=== PATIENT | male | born 1995 | race Caucasian/White ===

== ENCOUNTER 2020-09-16 21:03 | Inpatient (IN) | payer OTHER ==
[~2020-09-16 21:03] MED LIST: Iopamidol 370 76% 100 ML VIAL ONE
[2020-09-16] MEDS ORDERED: fentaNYL Citrate/PF 2,000 MCG in Sodium Chloride 0.9% 60 ML IV SCH (21:30)
[2020-09-16 21:31] LABS: Actual Bicarbonate (HCO3a) 11.8 mEq/L (22-28); Analyzer IN Cardio ER; Base Excess (BEa) -18.9 mEq/L (-2.0 to +3.0); CO2 Tension 45.7 mmHg (35.0-45.0); Calcium, Ionized (arterial) 1.13 mmol/L (1.12-1.30); Carboxyhemoglobin (COHb) 0.3 gm% (0.0-3.0); Hemoglobin (Hb) 16.6 g/dL (14.0-18.0); O2 Tension (PaO2), arterial 79.4 mmHg (80.0-100.0); Potassium - ABG Lab 4.04 mmol/L (3.70-5.30)
[2020-09-16 21:32] LABS: Puncture Site RRA; pH, Arterial 7.03 (7.35-7.45)
--- NOTE | 2020-09-16 21:32 | RAD ---
Exam: Chest one view HISTORY:Status post intubation. Status post NG tube placement. Comparison: 09/16/2020 at 04/21/2017 FINDINGS: Cardiac silhouette:Stable cardiomegaly. Lines and tubes: Interval placement of nasogastric tube terminating in left upper quadrant. Stable en dotracheal tube. Aorta: Unremarkable Pulmonary vessels: Normal Costophrenic angles: Clear LUNGS: Worsening confluent opacities of the lung parenchyma. Air bronchograms are noted in the left u pper lobe. Pneumothorax: None Osseous abnormalities: None IMPRESSION: 1. Stable endotracheal tube 2. Interval placement of nasogastric tube. Interval reduction of previous noted gastric distention. 3. Worsening bilateral alveolar opacities with air bronchograms in the left upper lobe.
[2020-09-16 21:33] LABS: ALV-art Gradient 576.475 mmHg (0-20)
[2020-09-16 21:37] LABS: Mean Corpuscular HGB CONC 32.5 g/dL (32.0-36.0); Mean Corpuscular Hemoglobin 29.6 pg (27.0-31.0); Mean Corpuscular Volume 91.1 fL (78.0-98.0); Mean Platelet Volume 7.6 fL (7.4-10.4); Platelet Count 412 thou/uL (130-400); RBC Distribution Width 11.4 % (11.5-14.5); Red Blood Cell (RBC) Count 5.42 mill/uL (4.70-6.10); White Blood Cell (WBC) Count 24.4 thou/uL (4.8-10.8)
[2020-09-16] MEDS ORDERED: Furosemide 40 MG/4 ML VIAL ONE (21:45)
[2020-09-16] MEDS ORDERED: Piperacillin/Tazobactam 3.375 GM VIAL ONE (21:45)
[2020-09-16 21:54] LABS: Band 8 % (5-11); Lymphocytes 10 % (21-51); MDiff Complete? YES; Monocytes 7 % (0-10); Neutrophil 73 % (42-75); Platelet Morphology Comment Appears Adequate; RBC Morphology Normal; Reactive Lymphocytes 2 % (0-10)
[2020-09-16 22:02] LABS: ALT (SGPT) 705 U/L (8-55); AST (SGOT) 703 U/L (5-34); Albumin 3.9 g/dL (3.5-5.0); Alkaline Phosphatase 99 U/L (40-110); Anion Gap 26 mmol/L (10-20); BUN (Urea Nitrogen) 18 mg/dL (8.9-20.6); Bilirubin, Total 0.4 mg/dL (0.2-1.2); Calc. Creatinine Clearance 0 mL/min (70-130); Calcium 7.3 mg/dL (7.8-10.44); Carbon Dioxide 10 mmol/L (22-29); Chloride 109 mmol/L (98-107); Globulin 2.7 g/dL (2.4-3.5); Glucose 322 mg/dL (70-105); Potassium 4.4 mmol/L (3.5-5.1); Protein, Total 6.6 g/dL (6.0-8.3); Sodium 141 mmol/L (136-145)
--- NOTE | 2020-09-16 22:58 | CT ---
Exam: CT cervical spine without contrast HISTORY: Trauma. Pain. COMPARISON: None FINDINGS: No craniocervical dissociation. Appropriate alignment of the lateral masses of C1 and C2. Intact odon toid process Appropriate alignment of the facets. Straightening of cervical lordosis is presumed to be due to patient position, muscle spasm or cervica l collar. Soft tissue neck structures: No mass, lymphadenopathy or hematoma. No prevertebral soft tissue swelli ng. Note is made of endotracheal and nasogastric tube. Upper mediastinum and lung apices: Consolidation in the visualized lung parenchyma Central spinal canal: Neural foramina and central spinal canal are patent. Evaluation is limited by t echnique Vertebral bodies: Cervical spine vertebral body height is maintained. No fracture. IMPRESSION: 1. No cervical spine fracture 2. Straightening of cervical lordosis as above. If there is concern for ligamentous injury, consider MRI 3. Consolidation involving the visualized lung apices.
[2020-09-16 23:30] LABS: SARS-CoV-2 NAA Rapid Test Not Detected (NotDetected)
[2020-09-16] MEDS ORDERED: Sodium Chloride 0.9% 1,000 ML IV SCH (23:45)
[2020-09-16] MEDS ORDERED: Ondansetron PF 4 MG/2 ML Vial IVP PRN (23:56)
[2020-09-16] MEDS ORDERED: hydrALAZINE 20 MG/ML VIAL SLOW IVP PRN (23:56)
[2020-09-16] MEDS ORDERED: Dextrose 5% in Water 1,000 ML IV PRN (23:56)
[2020-09-16] MEDS ORDERED: Dextrose 50% Abboject 50 ML SYRINGE SLOW IVP PRN (23:56)
[2020-09-17] MEDS ORDERED: Ventilator Sedation Protocol 1 EACH FS ONE (00:15)
[2020-09-17] MEDS ORDERED: Lorazepam 2 MG/ML VIAL SLOW IVP PRN (00:30)
[2020-09-17] MEDS ORDERED: Propofol BOLUS 1,000 MG/100 ML VIAL IV PRN (00:30)
[2020-09-17] MEDS ORDERED: Sodium Bicarb 50 MEQ/50 ML Abboject 8.4% SYRINGE IVP SCH ×2 (00:30→16:00)
[2020-09-17] MEDS ORDERED: Morphine 2 MG/ML VIAL SLOW IVP PRN (00:30)
[2020-09-17] MEDS ORDERED: Fentanyl BOLUS 250 ML IVPB PRN (00:30)
[2020-09-17] MEDS ORDERED: Propofol 1,000 MG/100 ML VIAL IV PRN (00:30)
[2020-09-17] MEDS ORDERED: Lactated Ringer's 1,000 ML IV SCH ×2 (00:30→02:55)
[2020-09-17] MEDS ORDERED: DISCONTINUE PREVIOUS NARCOTIC PAIN MEDICATIONS AND BENZODIAZEPINES FS SCH (00:30)
[2020-09-17 00:58] LABS: Phosphorus 7.8 mg/dL (2.3-4.7)
[2020-09-17] MEDS ORDERED: Vecuronium 10 MG VIAL IV PRN (01:30)
[2020-09-17] MEDS ORDERED: Sodium Bicarb 50 MEQ/50 ML Abboject 8.4% SYRINGE ONE ×2 (01:31→14:51)
[2020-09-17 02:06] VITALS: BMI 25.2
[2020-09-17 02:25] LABS: Bilirubin Negative (Negative); Blood, Urine 1+ (Negative); Clarity Clear (Clear); Glucose, Urine (Dipstick) 300 mg/dL (Negative); Ketone, Urine Negative (Negative); Leukocyte Negative Leu/uL (Negative); Nitrite Negative (Negative); Protein, Urine (Dipstick) 30 mg/dL (Neg-Trace); Specific Gravity, Urine 1.023 (1.002-1.036); Urobilinogen Normal mg/dL (Less than 2)
[2020-09-17 02:46] LABS: INR-International Normal Ratio 1.3; PTT 30.1 sec (22.9-36.1); Prothrombin Time 16.4 sec (12.0-14.7)
[2020-09-17 02:53] LABS: Lactic Acid 9.1 mmol/L (0.5-2.2)
[2020-09-17 02:54] LABS: Anion Gap 24 mmol/L (10-20); BUN (Urea Nitrogen) 22 mg/dL (8.9-20.6); Calc. Creatinine Clearance 78 mL/min (70-130); Calcium 7.3 mg/dL (7.8-10.44); Carbon Dioxide 12 mmol/L (22-29); Chloride 108 mmol/L (98-107); Glucose 266 mg/dL (70-105); Magnesium 2.1 mg/dL (1.6-2.6); Phosphorus 6.7 mg/dL (2.3-4.7); Potassium 3.8 mmol/L (3.5-5.1); Sodium 140 mmol/L (136-145)
[2020-09-17 03:26] LABS: CKMB 26.9 ng/mL (0-6.6)
[2020-09-17 03:31] LABS: Hemoglobin 18.8 g/dL (14.0-18.0); Mean Corpuscular HGB CONC 33.8 g/dL (32.0-36.0); Mean Corpuscular Hemoglobin 30.9 pg (27.0-31.0); Mean Corpuscular Volume 91.5 fL (78.0-98.0); Red Blood Cell (RBC) Count 6.09 mill/uL (4.70-6.10); White Blood Cell (WBC) Count 36.7 thou/uL (4.8-10.8)
[2020-09-17 03:32] LABS: Band 25 % (5-11); Hypochromia SLIGHT = 6-15 cells (100X) (0-5/hpf); Lymphocytes 5 % (21-51); MDiff Complete? YES; Mean Platelet Volume 7.6 fL (7.4-10.4); Metamyelocyte 1 % (0-0); Monocytes 6 % (0-10); Neutrophil 63 % (42-75); Platelet Count 410 thou/uL (130-400); Platelet Morphology Comment Appears Adequate; RBC Distribution Width 11.6 % (11.5-14.5)
[2020-09-17] MEDS ORDERED: Fentanyl 100 MCG/2 ML VIAL ONE (04:39)
[2020-09-17] MEDS ORDERED: Rocuronium Bromide 10 MG/ML (10ML VIAL) ONE (04:39)
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
[2020-09-17 07:53] LABS: Actual Bicarbonate (HCO3a) 11.3 mEq/L (22-28); Base Excess (BEa) -15.8 mEq/L (-2.0 to +3.0); CO2 Tension 31.8 mmHg (35.0-45.0); Calcium, Ionized (arterial) 1.12 mmol/L (1.12-1.30); Carboxyhemoglobin (COHb) 0.3 gm% (0.0-3.0); O2 Tension (PaO2), arterial 266.6 mmHg (80.0-100.0); Potassium - ABG Lab 3.42 mmol/L (3.70-5.30)
[2020-09-17 07:56] LABS: pH, Arterial 7.17 (7.35-7.45)
[2020-09-17 07:57] LABS: Puncture Site RRA
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
[2020-09-17 08:07] LABS: Hemoglobin 17.7 g/dL (14.0-18.0); Mean Corpuscular HGB CONC 32.7 g/dL (32.0-36.0); Mean Corpuscular Volume 91.7 fL (78.0-98.0); Mean Platelet Volume 7.7 fL (7.4-10.4); Platelet Count 407 thou/uL (130-400); RBC Distribution Width 11.5 % (11.5-14.5); Red Blood Cell (RBC) Count 5.92 mill/uL (4.70-6.10); White Blood Cell (WBC) Count 27.1 thou/uL (4.8-10.8)
--- NOTE | 2020-09-17 08:20 | RAD ---
EXAM: XR Chest 1 View Portable PROVIDED CLINICAL HISTORY: Intubated, pulmonary edema. COMPARISON: 09/16/2020 FINDINGS: There is artifact overlying the chest which limits adequate evaluation. There are increased interstit ial and alveolar opacities within the lungs bilaterally. The more dense area of consolidation in the left mid and upper lung zones has mildly improved. No new area of consolidation or pleural fluid is seen. Endotracheal tube and nasogastric tubes remain in place. Cardiac silhouette is within normal limits. Metallic density overlies right humeral head which may represent intraosseous access s ite. IMPRESSION: Limited exam due to artifact overlying the chest. However, there are increased interstitial and alveo lar opacities bilaterally which may be related to pulmonary edema or infectious process. There has been improvement in the more dense area of consolidation in the left lung compared to prior study.
[2020-09-17 08:40] LABS: Band 24 % (5-11); Lymphocytes 6 % (21-51); MDiff Complete? YES; Neutrophil 69 % (42-75); Platelet Morphology Comment Appears Adequate; RBC Morphology Normal; Reactive Lymphocytes 1 % (0-10)
[2020-09-17] MEDS ORDERED: FLU VACC QS2020-21(6MOS UP)/PF 60 MCG/0.5 ML SYRINGE IM ONE (09:00)
[2020-09-17] MEDS: Famotidine/PF 20 mg/2ml Vial SLOW IVP SCH ×2 (09:23→21:19)
[2020-09-17 09:27] LABS: ALT (SGPT) 652 U/L (8-55); AST (SGOT) 533 U/L (5-34); Albumin 3.5 g/dL (3.5-5.0); Alkaline Phosphatase 89 U/L (40-110); Anion Gap 25 mmol/L (10-20); BUN (Urea Nitrogen) 24 mg/dL (8.9-20.6); Bilirubin, Total 0.4 mg/dL (0.2-1.2); Calc. Creatinine Clearance 67 mL/min (70-130); Calcium 7.8 mg/dL (7.8-10.44); Carbon Dioxide 15 mmol/L (22-29); Chloride 107 mmol/L (98-107); Globulin 2.9 g/dL (2.4-3.5); Glucose 306 mg/dL (70-105); Phosphorus 4.5 mg/dL (2.3-4.7); Potassium 3.4 mmol/L (3.5-5.1); Protein, Total 6.4 g/dL (6.0-8.3); Sodium 144 mmol/L (136-145)
[2020-09-17 09:31] LABS: Troponin I 11.406 ng/mL (< 0.028)
[2020-09-17 09:41] LABS: Lactic Acid 12.5 mmol/L (0.5-2.2)
[2020-09-17] MEDS: Sodium Bicarbonate 150 MEQ in Dextrose 5% in Water 1,000 ML IV SCH ×2 (09:48→18:49)
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
--- NOTE | 2020-09-17 13:24 | EEG ---
DATE OF SERVICE: DESCRIPTION OF THE RECORD: Background activity consists of a burst suppression pattern. This is persistent throughout the study. There was no normal background activity seen during this tracing. IMPRESSION: This is an abnormal study for the findings of a burst suppression pattern consistent with a severe diffuse anoxic injury. Generally, this carries a poor prognosis. Job ID: [id number]
--- NOTE | 2020-09-17 14:09 | CT ---
EXAM: CT ANGIOGRAM OF THE HEAD AND NECK INDICATION: Stroke COMPARISON: None TECHNIQUE: CT angiogram of the head and neck are performed in the axial plane. Three-dimensional refo rmatted images are submitted for interpretation. FINDINGS: CTA OF THE HEAD WITH AND WITHOUT CONTRAST: NONCONTRAST HEAD CT: Complete loss of cortical spears-white matter differentiation. There is sulcal eff acement. POSTCONTRAST CT OF BRAIN: Pathologic enhancement: No pathologic enhancement the brain. Postcontrast soft tissue neck CT: Aerodigestive tract:Aerodigestive tract is patent. Limited evaluation due to the presence of an endot juan jose and nasogastric tube.. Limited evaluation of the oral cavity due to dental amalgam artifact. Epiglottis has a normal caliber. Preepiglottic fat is preserved. Sinuses: Arterial opacification of the visualized paranasal sinuses.. Orbits: Bilateral ocular lenses are appropriately located. Both globes are intact. Retrobulbar fat is preserved. Symmetric attenuation the optic nerves and ocular rectus muscles. Salivary glands:Appropriate attenuation of the parotid and submandibular glands. Thyroid gland: Appropriate attenuation of the thyroid gland. Lymph nodes: No evidence of lymphadenopathy by size criteria. Paraspinal muscles: Symmetric attenuation of the sternocleidomastoid muscles. Appropriate attenuation of the paraspinal muscles. Cervical spine:Vertebral body height is maintained. No fracture. No significant central canal stenosi s or significant neural foraminal narrowing. Limited evaluation by technique. Upper mediastinum and lung apices: Opacification visualized lung apices. CTA OF THE NECK WITH CONTRAST: Aorta: Appropriate enhancement and luminal diameter Right carotid artery: Appropriate enhancement and luminal diameter of the right carotid artery. Left carotid: Appropriate enhancement and luminal diameter of the left carotid artery. Subclavian arteries:Symmetric and patent Vertebral arteries:Vertebral arteries are patent throughout the course of the neck. Dominant left kassandra tebral artery. CTA OF THE BRAIN: Intracranial internal carotid arteries:Patent and symmetric Anterior circulation: Appropriate enhancement and luminal diameter the A1 segments, M1 segments, A2 s egments and proximal MCA branches. Intracranial vertebral arteries: Patent. Posterior circulation: Appropriate enhancement and luminal diameter of the basilar artery and P1 segm ents. IMPRESSION: 1. No hemodynamically significant stenosis, occlusion or aneurysmal formation. 2. Complete loss of cortical spears-white matter differentiation the noncontrast head CT along with sul elaine effacement. CT evidence for diffuse cerebral edema. Results study discussed with Dr. Presley 09/16/2020 at 11:10 PM Code CR Transcribed Date/Time: 09/17/2020 2:09 PM
[2020-09-17 14:19] LABS: Hemoglobin 16.9 g/dL (14.0-18.0); Mean Corpuscular HGB CONC 33.5 g/dL (32.0-36.0); Mean Corpuscular Hemoglobin 29.6 pg (27.0-31.0); Mean Corpuscular Volume 88.5 fL (78.0-98.0); Mean Platelet Volume 7.7 fL (7.4-10.4); Platelet Count 395 thou/uL (130-400); RBC Distribution Width 11.6 % (11.5-14.5); White Blood Cell (WBC) Count 26.9 thou/uL (4.8-10.8)
[2020-09-17] MEDS ORDERED: Norepinephrine 4 MG/4 ML VIAL ONE (14:38)
[2020-09-17 14:45] LABS: Band 22 % (5-11); Lymphocytes 7 % (21-51); MDiff Complete? YES; Metamyelocyte 1 % (0-0); Monocytes 1 % (0-10); Neutrophil 69 % (42-75); Platelet Morphology Comment Appears Adequate; RBC Morphology Normal
[2020-09-17] MEDS ORDERED: Sodium Chloride 0.9% 1,000 ML IV SCH (14:45)
[2020-09-17] MEDS ORDERED: Levothyroxine Sodium 400 MCG, Admixture Fee 1 EACH in Sodium Chloride 0.9% 100 ML IVPB SCH (14:45)
[2020-09-17 14:46] LABS: Anion Gap 21 mmol/L (10-20); BUN (Urea Nitrogen) 25 mg/dL (8.9-20.6); Calc. Creatinine Clearance 81 mL/min (70-130); Calcium 7.5 mg/dL (7.8-10.44); Carbon Dioxide 18 mmol/L (22-29); Chloride 108 mmol/L (98-107); Glucose 127 mg/dL (70-105); Lactic Acid 8.3 mmol/L (0.5-2.2); Magnesium 1.4 mg/dL (1.6-2.6); Potassium 4.3 mmol/L (3.5-5.1); Sodium 143 mmol/L (136-145)
[2020-09-17 14:47] LABS: Actual Bicarbonate (HCO3a) 19.8 mEq/L (22-28); Base Excess (BEa) -9.8 mEq/L (-2.0 to +3.0); CO2 Tension 59.1 mmHg (35.0-45.0); Calcium, Ionized (arterial) 1.03 mmol/L (1.12-1.30); Carboxyhemoglobin (COHb) 0.3 gm% (0.0-3.0); Hemoglobin (Hb) 15.2 g/dL (14.0-18.0); O2 Tension (PaO2), arterial 67.5 mmHg (80.0-100.0); Potassium - ABG Lab 4.08 mmol/L (3.70-5.30); Puncture Site Arterial Line; pH, Arterial 7.14 (7.35-7.45)
[2020-09-17 14:48] LABS: ALV-art Gradient 571.625 mmHg (0-20)
[2020-09-17] MEDS: Norepinephrine 8 MG in Dextrose 5% in Water 242 ML IVPB PRN ×3 (14:50→22:53)
[2020-09-17 14:54] LABS: Phosphorus 2.7 mg/dL (2.3-4.7)
[2020-09-17] MEDS: EPINEPHrine 1 MG, Admixture Fee 1 EACH in Dextrose 5% in Water 250 ML IV SCH ×3 (14:55→22:11)
[2020-09-17] MEDS ORDERED: Hydrocortisone Sod Succ/PF 100 mg/2 ml Vial ONE (14:57)
[2020-09-17] MEDS ORDERED: Esmolol 2,500 MG/250 ML 250 ML IVPB SCH (15:00)
[2020-09-17] MEDS ORDERED: Dextrose 50% Abboject 50 ML SYRINGE SLOW IVP SCH (15:00)
[2020-09-17] MEDS ORDERED: Meropenem 500 MG in Sodium Chloride 0.9% 100 ML IV SCH (15:00)
[2020-09-17] MEDS ORDERED: Albuterol Sulfate 2.5 mg/3 ml Neb NEB PRN ×2 (15:00)
[2020-09-17] MEDS ORDERED: metroNIDAZOLE 500 MG in Premix Bag 1 BAG IVPB SCH (15:00)
[2020-09-17] MEDS ORDERED: Vasopressin 20 UNIT in Sodium Chloride 0.9% 250 ML 250 ML IV SCH (15:00)
[2020-09-17] MEDS ORDERED: Esmolol 100 MG/10 ML VIAL IVP SCH (15:00)
[2020-09-17] MEDS ORDERED: Naloxone HCl 2 mg/2 ml Syringe IV SCH (15:00)
[2020-09-17] MEDS ORDERED: CEFAZOLIN 1 GM in Sodium Chloride 0.9% 100 ML IVPB SCH (15:00)
[2020-09-17] MEDS ORDERED: Labetalol HCl 100 MG/20 ML VIAL SLOW IVP SCH (15:00)
[2020-09-17] MEDS ORDERED: Piperacillin/Tazobactam 3.375 GM in Sodium Chloride 0.9% 100 ML IVPB SCH ×2 (15:00→18:45)
[2020-09-17] MEDS ORDERED: methylPREDNISolone Sod Succ 2 GM in Sodium Chloride 0.9% 100 ML IVPB SCH (15:00)
[2020-09-17] MEDS ORDERED: DOPamine 400 MG/D5W 250 ML 250 ML IVPB SCH (15:00)
[2020-09-17] MEDS ORDERED: DOBUTamine 500 mg/250 ml 250 ML IVPB SCH (15:00)
[2020-09-17] MEDS ORDERED: Nitroglycerin 50 MG/250 ML BOT 250 ML IVPB SCH (15:00)
[2020-09-17] MEDS ORDERED: niCARdipine 25 MG in Sodium Chloride 0.9% 250 ML 250 ML IVPB SCH (15:00)
[2020-09-17] MEDS ORDERED: Milrinone 20 MG in Sodium Chloride 0.9% 100 ML IVPB SCH (15:00)
[2020-09-17] MEDS ORDERED: Norepinephrine 8 MG/0.9% NS 250 ML IVPB SCH (15:00)
[2020-09-17] MEDS ORDERED: Clindamycin/D5W 600 MG in Premix Bag 1 BAG IVPB SCH (15:00)
[2020-09-17] MEDS ORDERED: hydrALAZINE 20 MG/ML VIAL SLOW IVP SCH ×2 (15:00)
[2020-09-17] MEDS ORDERED: Phenylephrine 10 MG/NS 250 ML 250 ML IVPB SCH (15:00)
[2020-09-17] MEDS ORDERED: Vancomycin 1 GM in Premix Bag 1 BAG IVPB SCH (15:00)
[2020-09-17] MEDS ORDERED: Rocuronium Bromide 10 MG/ML (10ML VIAL) IVP SCH (15:00)
[2020-09-17] MEDS ORDERED: Vecuronium 10 MG VIAL IVP SCH (15:00)
[2020-09-17] MEDS ORDERED: Amiodarone 450 MG, Admixture Fee 1 EACH in Dextrose 5% in Water 250 ML IVPB SCH (15:00)
[2020-09-17] MEDS ORDERED: HUMULIN R 100 UNITS in Sodium Chloride 0.9% 100 ML IVPB SCH (15:00)
[2020-09-17] MEDS ORDERED: Insulin Regular 300 UNITS/3 ML VIAL IVP SCH (15:00)
[2020-09-17] MEDS ORDERED: Mannitol 12.5 GM/50 ML IV SCH (15:00)
[2020-09-17] MEDS ORDERED: Phytonadione 10 MG in Sodium Chloride 0.9% 50 ML IVPB SCH (15:00)
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
[2020-09-17] MEDS ORDERED: Hydrocortisone Sod Succ/PF 100 mg/2 ml Vial IVP SCH (15:15)
[2020-09-17 15:21] LABS: Actual Bicarbonate (HCO3a) 23.5 mEq/L (22-28); Base Excess (BEa) -5.3 mEq/L (-2.0 to +3.0); Calcium, Ionized (arterial) 1.23 mmol/L (1.12-1.30); Carboxyhemoglobin (COHb) 0.3 gm% (0.0-3.0); Hemoglobin (Hb) 14.3 g/dL (14.0-18.0); O2 Tension (PaO2), arterial 77.4 mmHg (80.0-100.0); Potassium - ABG Lab 3.32 mmol/L (3.70-5.30)
[2020-09-17 15:25] LABS: ALV-art Gradient 310.925 mmHg (0-20); CO2 Tension 60.1 mmHg (35.0-45.0); Puncture Site Arterial Line; pH, Arterial 7.21 (7.35-7.45)
[2020-09-17] MEDS ORDERED: EPINEPHrine 1 MG/10 ML Abboject SYRINGE IVP SCH (16:00)
[2020-09-17] MEDS ORDERED: Calcium Chloride 1 GM/10 ML Abboject SYRINGE IVP SCH ×2 (16:00→23:45)
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
[2020-09-17] MEDS ORDERED: Sodium Phosphate 15 MMOL in Sodium Chloride 0.9% 250 ML 250 ML IVPB SCH (17:00)
[2020-09-17] MEDS ORDERED: Magnesium Sulfate 4 GM in Sodium Chloride 0.9% 250 ML 250 ML IVPB SCH (17:00)
--- NOTE | 2020-09-17 17:01 | PRG ---
DATE OF SERVICE: 09/17/2020 SUBJECTIVE: Mr. Pope is a 24-year-old man, who was admitted yesterday following attempted suicide by hanging. The patient suffered acute anoxic brain injury complicated by acute hypoxemic cardiac arrest, which required a prolonged CPR. The patient is admitted on mechanical ventilator support. Off sedation now for almost 24 hours, his [place] Coma Scale remains at 3. Urinary output is adequate for this patient's age and weight. The patient has been profoundly tachycardic. He had no gag, cough, or corneal reflexes. He did have spontaneous respiration for part of this morning. However, late this afternoon, the patient lost spontaneous respiration. He also developed severe tachycardia and hypotension. Vasopressor support was initiated at that time. OBJECTIVE: VITAL SIGNS: Current blood pressure is 128/90, pulse 147, this is on epinephrine at 10 mcg/minute. HEENT: Pupils are fixed and dilated at 5 mm bilaterally. NECK: He has no jugular venous distention noted. HEART: Reveals regular rate with sinus tachycardia. No murmurs or gallops auscultated. LUNGS: Clear to auscultation bilaterally. Breathing, regular and unlabored. ABDOMEN: Soft, nontender, and nondistended. LABORATORY FINDINGS: Today includes CBC with 26,900 white blood cells, hemoglobin and hematocrit are 16.9 and 50.4 respectively, platelet count is 395,000. Arterial blood gas; pH is 7.14, pCO2 is 59, pO2 is 67.5, base excess is -9.8, ionized calcium 1.03. Metabolic profile; sodium 143, potassium 4.3, chloride is 108, bicarb is 18, BUN is 25, creatinine is 1.56 this is down from 1.89 three hours ago and this is currently on bicarbonate infusion, which was initiated to treat for acute tubular necrosis secondary to IV contrast nephropathy complicating acute cardiogenic shock. Glucose is 127. Lactic acid is 8.3, this is down from 12.5 earlier today. Magnesium is 1.4 and phosphorus is 2.7. IMPRESSION: 1. Post injury #1, status post attempted suicide by hanging. 2. Acute anoxic brain injury with worsening cerebral edema and brainstem herniation in evolution. 3. Acute post-traumatic respiratory failure. 4. Acute circulatory collapse secondary to brainstem herniation. 5. Acute kidney injury, resolving. 6. Acute hypomagnesemia. 7. Acute hypophosphatemia. 8. Acute lactic acidosis, resolving. PLAN: 1. EEG was obtained today and consultation was arranged with Neurology. The EEG was reportedly consistent with anoxic brain injury. 2. We will correct abnormal electrolytes. 3. T4 protocol will be initiated. 4. We will continue with full mechanical ventilator support. 5. Continue with bicarbonate infusion, monitoring the patient's renal function as the acute kidney injury resolves. 6. Above findings and plan has been discussed with the patient's parents as well as his at bedside. 7. I have informed them that this patient is eminently progressing to brain . 8. We will obtain apnea test and confirmatory test with brain flow study in nuclear medicine tomorrow morning. 9. [facility] has been contacted. Family is considering organ donation. Total critical care time is 65 minutes. Job ID: [id number]
[2020-09-17 17:30] LABS: Lactic Acid 11.4 mmol/L (0.5-2.2)
--- NOTE | 2020-09-17 17:39 | RAD ---
Portable frontal chest radiograph: 09/17/2020 COMPARISON: Earlier on09/17/2020 HISTORY: Respiratory failure FINDINGS: Endotracheal tube and nasogastric tube in proper position. Dense opacity in the left base s uggests consolidation/collapse. Extensive perihilar and bibasilar airspace disease noted. Small bilateral pneumothoraces noted in the lung apices. Pneumomediastinum is noted with probable pneumoper icardium and soft tissue gas extending into the neck and the left supraclavicular region. IMPRESSION: Extensive airspace disease, most prominent in the left base. Diffuse airspace disease has worsened. Small bilateral pneumothoraces, subcutaneous emphysema, pneumomediastinum, and probable pneumopericardium. Results were discussed with Dr. John at approximately 5:30 PM 09/17/2020
[2020-09-17] MEDS ORDERED: Albuterol Sulfate 2.5 mg/3 ml Neb NEB SCH ×2 (18:30)
[2020-09-17] MEDS: Vasopressin 20 UNIT, Admixture Fee 1 EACH in Sodium Chloride 0.9% 50 ML IV SCH (18:50)
--- NOTE | 2020-09-17 19:04 | OP ---
DATE OF PROCEDURE: 09/17/2020 PREOPERATIVE DIAGNOSES: 1. Acute bilateral pneumothoraces. 2. Acute posttraumatic respiratory failure. POSTOPERATIVE DIAGNOSES: 1. Acute bilateral pneumothoraces. 2. Acute posttraumatic respiratory failure. PROCEDURES PERFORMED: Placement of bilateral 28-Malaysian thoracostomy tubes. INDICATIONS FOR PROCEDURE: A 24-year-old man, post injury day #1, status post attempted suicide by hanging. The patient has been placed on full mechanical ventilator support with a PEEP of 15 to treat acute negative pressure pulmonary edema with hypoxemic respiratory failure. The patient suddenly developed profound tachycardia with worsening hypoxemia. He was cardioverted twice for acute onset supraventricular tachycardia. Chest x-ray was obtained, which revealed bilateral pneumothoraces. Decision was made to place the chest tubes to decompress these pneumothoraces. DESCRIPTION OF PROCEDURE: The patient was placed in supine position. Bilateral chest wall sterilely prepped and draped in usual fashion. The skin below the 6th intercostal space, left axillary line was anesthetized with 1% lidocaine. A 1 cm transverse incision was made here using a 10 scalpel. The left pleural cavity was bluntly entered using hemostats. Digital finger exploration reveals no pleural adhesions. A 28-Malaysian chest tube was introduced into the pleural cavity and advanced superiorly and posteriorly. The tube was connected to Pleur-evac, which was placed to wall suction. Tube was secured to anterior chest wall using 0 silk suture. Sterile dressings were applied. Attention was then turned to the right chest wall, which was separately prepped and draped in usual fashion. Again, the skin in the 6th intercostal space, right anterior axillary line was anesthetized with 1% lidocaine. 1 cm transverse incision was made here with 10 scalpel. Right pleural cavity was entered using a hemostat. Digital finger exploration reveals no pleural adhesions. A 28-Malaysian chest tube introduced into the pleural cavity and advanced superiorly and posteriorly. The tube again was connected to Pleur-evac, which was placed to wall suction. Chest tube secured to anterior chest wall using 0 silk suture. Sterile dressings were applied. He remained hemodynamically stable. Oxygen saturation improved to 100% almost immediately and the FiO2 has now been weaned from 65% to 40% and oxygen saturation remains at 100%. Job ID: [id number]
[2020-09-17 19:17] LABS: Actual Bicarbonate (HCO3a) 19.2 mEq/L (22-28); Base Excess (BEa) -4.5 mEq/L (-2.0 to +3.0); CO2 Tension 31.5 mmHg (35.0-45.0); Carboxyhemoglobin (COHb) 0.2 gm% (0.0-3.0); Hemoglobin (Hb) 13.8 g/dL (14.0-18.0); Potassium - ABG Lab 3.72 mmol/L (3.70-5.30)
[2020-09-17 19:19] LABS: ALV-art Gradient 331.625 mmHg (0-20)
[2020-09-17] MEDS: Piperacillin/Tazobactam 3.375 GM in Sodium Chloride 0.9% 100 ML IVPB SCH (21:19)
--- NOTE | 2020-09-17 22:07 | RAD ---
Portable frontal chest radiograph: 09/17/2020 COMPARISON: Earlier on 09/17/2020 HISTORY: Evaluate lung parenchyma, chest tube placement FINDINGS: Small residual pneumothorax seen in the left lung apex. Worsening pneumomediastinum, especi ally in the left hilar region. Worsening subcutaneous gas in the supraclavicular regions. Extensive bilateral pulmonary parenchymal airspace disease, nonspecific. New bilateral chest tubes. Stable endo tracheal tube and nasogastric tube. IMPRESSION: Interval placement of bilateral chest tubes. Small residual apical pneumothorax on the le ft. Worsening pneumomediastinum and subcutaneous gas superiorly.
[2020-09-17] MEDS ORDERED: Insulin Regular 300 UNITS/3 ML VIAL SC PRN (22:15)
[2020-09-17 22:26] LABS: Bilirubin Negative (Negative); Blood, Urine 2+ (Negative); Clarity Clear (Clear); Glucose, Urine (Dipstick) Greater than 1000 mg/dL (Negative); Ketone, Urine Negative (Negative); Leukocyte Negative Leu/uL (Negative); Mucous/LPF Rare LPF (<2+); Nitrite Negative (Negative); Protein, Urine (Dipstick) 10 mg/dL (Neg-Trace); Specific Gravity, Urine 1.027 (1.002-1.036); Squamous Epithelial 0-3 HPF (0-3); Urobilinogen Normal mg/dL (Less than 2); pH, Urine 5.5 (5.0-9.0)
[2020-09-17 22:26] LABS: INR-International Normal Ratio 1.6; Prothrombin Time 19.2 sec (12.0-14.7)
[2020-09-17 22:40] LABS: Lactic Acid 5.8 mmol/L (0.5-2.2)
[2020-09-17 22:42] LABS: Band 17 % (5-11); Hemoglobin 13.7 g/dL (14.0-18.0); Lymphocytes 3 % (21-51); MDiff Complete? YES; Mean Corpuscular HGB CONC 33.8 g/dL (32.0-36.0); Mean Corpuscular Hemoglobin 29.9 pg (27.0-31.0); Mean Corpuscular Volume 88.6 fL (78.0-98.0); Mean Platelet Volume 7.9 fL (7.4-10.4); Monocytes 5 % (0-10); Neutrophil 75 % (42-75); Platelet Count 333 thou/uL (130-400); Platelet Morphology Comment Appears Adequate; RBC Distribution Width 11.5 % (11.5-14.5); Red Blood Cell (RBC) Count 4.57 mill/uL (4.70-6.10); White Blood Cell (WBC) Count 24.4 thou/uL (4.8-10.8)
[2020-09-17 22:45] LABS: ALT (SGPT) 348 U/L (8-55); AST (SGOT) 177 U/L (5-34); Albumin 2.6 g/dL (3.5-5.0); Alkaline Phosphatase 55 U/L (40-110); Anion Gap 16 mmol/L (10-20); BUN (Urea Nitrogen) 21 mg/dL (8.9-20.6); Bilirubin, Direct 0.1 mg/dL (0.1-0.3); Bilirubin, Total 0.2 mg/dL (0.2-1.2); Calc. Creatinine Clearance 92 mL/min (70-130); Calcium 7.1 mg/dL (7.8-10.44); Carbon Dioxide 23 mmol/L (22-29); Chloride 110 mmol/L (98-107); Globulin 2.1 g/dL (2.4-3.5); Glucose 278 mg/dL (70-105); Lipase 5 U/L (8-78); Magnesium 2.4 mg/dL (1.6-2.6); Phosphorus 1.6 mg/dL (2.3-4.7); Protein, Total 4.7 g/dL (6.0-8.3); Sodium 145 mmol/L (136-145)
[2020-09-17 22:48] LABS: Sperm/HPF 1+ HPF (None Seen)
[2020-09-17] MEDS ORDERED: Sodium Chloride For Inhalation 0.9% 3 ML NEB ONE (22:48)
[2020-09-17 22:49] LABS: Bacteria/HPF Rare-Few HPF (None Seen)
[2020-09-17] MEDS: Levothyroxine Sodium 400 MCG in Sodium Chloride 0.9% 100 ML IVPB SCH (23:22)
[2020-09-17] MEDS ORDERED: Sodium Phosphate 30 MMOL in Sodium Chloride 0.9% 250 ML 250 ML IVPB SCH (23:30)
[2020-09-18] MEDS: Vasopressin 20 UNIT, Admixture Fee 1 EACH in Sodium Chloride 0.9% 50 ML IV SCH (00:21)
[2020-09-18 02:06] LABS: Actual Bicarbonate (HCO3a) 26.1 mEq/L (22-28); Base Excess (BEa) 3.1 mEq/L (-2.0 to +3.0); CO2 Tension 35.1 mmHg (35.0-45.0); Calcium, Ionized (arterial) 1.15 mmol/L (1.12-1.30); Carboxyhemoglobin (COHb) 0.4 gm% (0.0-3.0); Hemoglobin (Hb) 13.3 g/dL (14.0-18.0); O2 Tension (PaO2), arterial 83.6 mmHg (80.0-100.0); Potassium - ABG Lab 3.41 mmol/L (3.70-5.30); pH, Arterial 7.49 (7.35-7.45)
[2020-09-18 02:08] LABS: ALV-art Gradient 157.725 mmHg (0-20); Puncture Site Arterial Line
--- NOTE | 2020-09-18 02:47 | PRG ---
DATE OF SERVICE: 09/17/2020 SUBJECTIVE: The patient was seen during evening rounds in the critical care unit. The patient is hospital day #2, status post suicide attempt by hanging. The patient remains on full mechanical ventilator support. The patient's Deborah coma scale remains 3 off sedation. The patient's urinary output is adequate. The patient remains tachycardic. The patient has no gag, cough, or corneal reflexes. Pupils are currently fixed and dilated. OBJECTIVE: HEENT: Crepitus noted to bilateral neck, extensive swelling and edema to the neck. RESPIRATORY: Bilateral breath sounds are clear. CARDIAC: Regular rate and regular rhythm. Tachycardic. ABDOMEN: Soft and nontender. PLAN: Continue supportive care and full ventilatory support. Replace electrolytes. We will increase sliding scale to moderate. Apnea and brain flow study tomorrow morning. TERRY has been contacted. Job ID: [id number] MTDD
[2020-09-18] MEDS ORDERED: Dextrose 50% Abboject 50 ML SYRINGE ONE (03:13)
[2020-09-18] MEDS: Levothyroxine Sodium 400 MCG in Sodium Chloride 0.9% 100 ML IVPB SCH ×2 (03:51→10:20)
[2020-09-18 04:29] LABS: INR-International Normal Ratio 1.8; PTT 35.7 sec (22.9-36.1); Prothrombin Time 21.3 sec (12.0-14.7)
[2020-09-18 04:32] LABS: Lactic Acid 2.1 mmol/L (0.5-2.2)
[2020-09-18 04:41] LABS: Band 28 % (5-11); Hemoglobin 12.6 g/dL (14.0-18.0); Lymphocytes 15 % (21-51); MDiff Complete? YES; Mean Corpuscular HGB CONC 34.7 g/dL (32.0-36.0); Mean Corpuscular Hemoglobin 30.2 pg (27.0-31.0); Mean Corpuscular Volume 86.9 fL (78.0-98.0); Mean Platelet Volume 7.7 fL (7.4-10.4); Monocytes 5 % (0-10); Neutrophil 52 % (42-75); Platelet Count 279 thou/uL (130-400); Platelet Morphology Comment Appears Adequate; RBC Distribution Width 11.5 % (11.5-14.5); Red Blood Cell (RBC) Count 4.19 mill/uL (4.70-6.10); White Blood Cell (WBC) Count 19.7 thou/uL (4.8-10.8)
[2020-09-18 04:53] LABS: ALT (SGPT) 288 U/L (8-55); AST (SGOT) 130 U/L (5-34); Albumin 2.5 g/dL (3.5-5.0); Alkaline Phosphatase 50 U/L (40-110); Anion Gap 13 mmol/L (10-20); BUN (Urea Nitrogen) 17 mg/dL (8.9-20.6); Bilirubin, Direct 0.2 mg/dL (0.1-0.3); Bilirubin, Total 0.4 mg/dL (0.2-1.2); Calc. Creatinine Clearance 125 mL/min (70-130); Calcium 7.4 mg/dL (7.8-10.44); Carbon Dioxide 26 mmol/L (22-29); Chloride 107 mmol/L (98-107); Globulin 1.9 g/dL (2.4-3.5); Glucose 143 mg/dL (70-105); Lipase 4 U/L (8-78); Magnesium 1.6 mg/dL (1.6-2.6); Phosphorus 5.5 mg/dL (2.3-4.7); Potassium 3.4 mmol/L (3.5-5.1); Protein, Total 4.4 g/dL (6.0-8.3); Sodium 143 mmol/L (136-145)
[2020-09-18] MEDS: Sodium Bicarbonate 150 MEQ in Dextrose 5% in Water 1,000 ML IV SCH (05:54)
[2020-09-18] MEDS: Piperacillin/Tazobactam 3.375 GM in Sodium Chloride 0.9% 100 ML IVPB SCH (05:58)
[2020-09-18 07:10] LABS: Actual Bicarbonate (HCO3a) 22.7 mEq/L (22-28); Base Excess (BEa) -1.4 mEq/L (-2.0 to +3.0); CO2 Tension 35.7 mmHg (35.0-45.0); Hemoglobin (Hb) 8.4 g/dL (14.0-18.0); O2 Tension (PaO2), arterial 131.2 mmHg (80.0-100.0); Potassium - ABG Lab 4.98 mmol/L (3.70-5.30); pH, Arterial 7.42 (7.35-7.45)
[2020-09-18 07:11] LABS: Puncture Site Arterial Line
[2020-09-18 07:12] LABS: ALV-art Gradient 109.375 mmHg (0-20)
[2020-09-18] MEDS ORDERED: Potassium Chloride 40 MEQ in Sodium Chloride 0.9% 250 ML 250 ML IVPB SCH (07:30)
[2020-09-18] MEDS ORDERED: Magnesium Sulfate 4 GM in Sodium Chloride 0.9% 250 ML 250 ML IVPB SCH (07:30)
[2020-09-18] MEDS ORDERED: Potassium Chloride 40 MEQ in Premix Bag 1 BAG IVPB SCH (07:30)
[2020-09-18] MEDS ORDERED: Magnesium 2 GM/50 ML 2 GM in Premix Bag 1 BAG IVPB SCH (07:30)
[2020-09-18] MEDS ORDERED: Refresh Lacri-lube Opth Oint 7 GM TUBE FS PRN (07:35)
[2020-09-18] MEDS ORDERED: EPINEPHrine 4 MG in Dextrose 5% in Water 250 ML IV SCH (07:45)
[2020-09-18] MEDS ORDERED: Calcium Chloride 13.6 MEQ in Sodium Chloride 0.9% 100 ML IVPB SCH (08:00)
--- NOTE | 2020-09-18 08:21 | RAD ---
AP CHEST: Date: 09/18/2020 INDICATION: CCU follow-up. On ventilator. COMPARISON: 09/17/2020. FINDINGS: Bilateral chest tubes are unchanged. Hazy diffuse infiltrates seen throughout both lungs, unchanged f rom yesterday. ET tube and NG tube remain in place. No significant pneumothorax. Subcutaneous emphyse ma seen in the upper chest and neck region with evidence of pneumomediastinum. IMPRESSION: Stable chest findings. POS: AGW
[2020-09-18] MEDS: Famotidine/PF 20 mg/2ml Vial SLOW IVP SCH (08:49)
[2020-09-18] MEDS: Norepinephrine 8 MG in Dextrose 5% in Water 242 ML IVPB PRN (08:49)
--- NOTE | 2020-09-18 08:54 | NM ---
NUCLEAR MEDICINE BRAIN CEREBRAL FLOW STUDY: Date: 09/18/2020 HISTORY: Status post hanging. Evaluate for brain . RADIOPHARMACEUTICAL: 31 mCi technetium-99m HMPAO injected intravenously. FINDINGS: No intracranial blood flow is seen. No tracer localization is seen in the brain parenchyma. IMPRESSION: Absent brain perfusion. POS: AH
[2020-09-18 09:13] VITALS: TEMP 99
[2020-09-18] MEDS ORDERED: Sodium Chloride 0.9% 1,000 ML IV SCH (09:45)
[2020-09-18] MEDS ORDERED: Polyvinyl Alcohol 1.4%/Povidone 0.6% Opth Drops EA EYE PRN (09:45)
[2020-09-18 10:11] LABS: Calcium, Ionized (arterial) 1.05 mmol/L (1.12-1.30); Carboxyhemoglobin (COHb) 0.8 gm% (0.0-3.0); Hemoglobin (Hb) 11.9 g/dL (14.0-18.0); Potassium - ABG Lab 3.27 mmol/L (3.70-5.30)
[2020-09-18 10:12] LABS: CO2 Tension 84.1 mmHg (35.0-45.0); O2 Tension (PaO2), arterial 41.7 mmHg (80.0-100.0); pH, Arterial 7.21 (7.35-7.45)
[2020-09-18 10:13] LABS: ALV-art Gradient 2.905 mmHg (0-20); Puncture Site Arterial Line
--- NOTE | 2020-09-18 10:29 | RAD ---
Chest AP view INDICATION: History of lung measurements COMPARISON: Prior chest radiograph dated September 18, 2020 3:37 AM FINDINGS: Lungs: Diffuse airspace opacities persist. Patient remains intubated. Cardiac silhouette: Mild cardiomegaly is stable Pulmonary vasculature: Not well seen Pleural spaces: There are stable bilateral chest tubes. A small left apical pneumothorax persists. N o right-sided pneumothorax is evident. Upper abdomen: Gastric catheter projects below the left hemidiaphragm in the region of the fundus. Osseous structures: Unchanged. Intraosseous cannula is seen within the right proximal humerus, stabl e to the prior. Additional findings: Pneumomediastinum persists. Chest wall emphysema is similar. The very apical portions of the hemithoraces were not included in this field of view. On the comparis on, the craniocaudad dimension of the right lung was 22.1 cm. The craniocaudad dimension on the left was 22.8 cm. The transverse dimension from inner and inner rib of the lower chest was 29.1 cm. IMPRESSION: 1. Stable bilateral airspace disease. 2. Stable bilateral chest tubes with persistent small left apical pneumothorax. 3. Persistent pneumomediastinum and chest wall emphysema. 4. Lung measurements as above from the chest radiograph dated 09/18/2020 at 3:57 AM.
[2020-09-18 11:11] VITALS: BP 134/81
[2020-09-18 11:47] LABS: Actual Bicarbonate (HCO3a) 25.1 mEq/L (22-28); Base Excess (BEa) 0.5 mEq/L (-2.0 to +3.0); Calcium, Ionized (arterial) 1.05 mmol/L (1.12-1.30); Carboxyhemoglobin (COHb) 0.3 gm% (0.0-3.0); Hemoglobin (Hb) 11.6 g/dL (14.0-18.0); O2 Tension (PaO2), arterial 157.2 mmHg (80.0-100.0); Potassium - ABG Lab 3.48 mmol/L (3.70-5.30); pH, Arterial 7.42 (7.35-7.45)
[2020-09-18 11:53] LABS: Puncture Site Arterial Line
[2020-09-18] MEDS ORDERED: HUMULIN R 100 UNITS in Sodium Chloride 0.9% 100 ML IVPB SCH (23:45)
--- NOTE | 2020-09-19 08:17 | DIS ---
DATE OF ADMISSION: 09/16/2020 DATE OF DISCHARGE: 09/18/2020 ADMITTING DIAGNOSES: 1. Status post attempted suicide by hanging. 2. Traumatic cardiac arrest. 3. Acute respiratory failure with pulmonary edema and hypoxemia. 4. Acute anoxic brain injury with cerebral edema. DISCHARGE DIAGNOSES: 1. Status post attempted suicide by hanging. 2. Traumatic cardiac arrest. 3. Acute respiratory failure with pulmonary edema and hypoxemia. 4. Acute anoxic brain injury with cerebral edema. 5. Brain . 6. Bilateral pneumothoraces. PROCEDURES PERFORMED: Placement of bilateral tube thoracostomies on 09/17/2017. HISTORY/HOSPITAL COURSE: A 24-year-old man was [facility] hanging [facility] the [facility] in apparent suicide attempt. When the patient was cut down, he was in obvious respiratory failure, as well as cardiac arrest. This required prolonged CPR prior to return of spontaneous circulation. The patient had remained in deep coma since that time with a [place] Coma Scale of 3. Initial CT scan of the brain revealed cerebral edema with loss of spears-white matter. He had remained on mechanical ventilator support with increased PEEP and inverse I to E ratio. Yesterday, the patient had an acute episode of worsening hypoxemia and chest x-ray revealed bilateral pneumothoraces, which required tube thoracostomies. By this morning, the patient remained in deep coma. He had no brainstem function including, but not limited to absence of spontaneous respiration. Apnea test was obtained and aborted at 5 minutes due to profound hypoxemia, although the patient's pCO2 was in excess of 80 without any spontaneous respiration. A nuclear medicine brain flow study was obtained today, which revealed absence of a blood flow to the brain. The patient was pronounced brain at 10:15 a.m. at bedside. This was discussed with family, who has elected to proceed with organ donation. Job ID: [id number]
== END 2020-09-18 10:15 | disposition expired | DRG 922 ==
LOC: ERS 21:03 → EEVIPCON 21:03 → CCU 21:08
PROVIDERS: ADMIT Surgery; ATTEND Surgery
PROC: 5A1945Z Respiratory Ventilation, 24-96 Consecutive Hours (ICD-10-PCS; principal; 2020-09-17)
PROC: 3E033XZ Introduction of Vasopressor into Peripheral Vein, Percutaneous Approach (ICD-10-PCS; 2020-09-17)
PROC: 0W9B30Z Drainage of Left Pleural Cavity with Drainage Device, Percutaneous Approach (ICD-10-PCS; 2020-09-17)
PROC: 0W9930Z Drainage of Right Pleural Cavity with Drainage Device, Percutaneous Approach (ICD-10-PCS; 2020-09-17)
PROC: 30233K1 Transfusion of Nonautologous Frozen Plasma into Peripheral Vein, Percutaneous Approach (ICD-10-PCS; 2020-09-18)
DX: T71.162A Asphyxiation due to hanging, intentional self-harm, initial encounter (principal); J96.01 Acute respiratory failure with hypoxia; G93.6 Cerebral edema; G93.5 Compression of brain; N17.0 Acute kidney failure with tubular necrosis; G93.1 Anoxic brain damage, not elsewhere classified; J93.9 Pneumothorax, unspecified; J81.1 Chronic pulmonary edema; E87.2 Acidosis; Z51.5 Encounter for palliative care; R57.0 Cardiogenic shock; I46.8 Cardiac arrest due to other underlying condition; Z20.828 Contact with and (suspected) exposure to other viral communicable diseases; F17.210 Nicotine dependence, cigarettes, uncomplicated; E83.42 Hypomagnesemia; E83.39 Other disorders of phosphorus metabolism; Z28.21 Immunization not carried out because of patient refusal; Z88.5 Allergy status to narcotic agent; Z88.0 Allergy status to penicillin; Z79.899 Other long term (current) drug therapy; Z78.1 Physical restraint status
CPT/HCPCS: 31500; 36415; 36416; 36430; 36600; 70496; 70498; 71045; 72125; 78610; 80053; 81003; 82150; 82247; 82248; 82550; 82553; 82805; 82977; 83036; 83605; 83690; 83735; 83880; 84100; 84146; 84484; 85025; 85384; 85610; 86850; 86900; 86901; 93005; 94002; 94003; 94640; 94760; 95816; 95819; 96365; 96366; 96368; 96375; 99292; A9521; G0390; J0171; J1720; J1815; J1940; J2543; J3010; J3475; J3480; J3490; J7050; J7070; J7620; P9059; Q9967; S0028; U0002

== ENCOUNTER 2020-09-18 10:10 | Day surgery (SDC) | payer OTHER ==
[2020-09-18] MEDS: Norepinephrine 8 MG in Dextrose 5% in Water 242 ML IVPB PRN ×2 (12:46→17:00)
[2020-09-18] MEDS ORDERED: Albumin 25% 25 GM/100 ML BOT IVPB SCH ×2 (13:15→20:30)
[2020-09-18] MEDS ORDERED: Albuterol Sulfate 2.5 mg/3 ml Neb NEB PRN (13:15)
[2020-09-18] MEDS ORDERED: Vecuronium 10 MG VIAL ONE (13:21)
--- NOTE | 2020-09-18 13:22 | RAD ---
EXAM: XR Chest 1 View Portable PROVIDED CLINICAL HISTORY: Organ donor COMPARISON: 09/18/2020 9:54 AM FINDINGS: Cardiac and mediastinal silhouette is unchanged in appearance. Diffuse bilateral lung consolidation, extensive subcutaneous emphysema and pneumomediastinum are redemonstrated. Bilateral chest tubes are again seen. Small bilateral apical pneumothoraces. Endotracheal tube and enteric catheter in melissa lar position. IMPRESSION: As above.
[2020-09-18] MEDS ORDERED: Polyvinyl Alcohol 1.4%/Povidone 0.6% Opth Drops EA EYE SCH (13:30)
[2020-09-18] MEDS ORDERED: Vecuronium 10 MG VIAL IV SCH (13:30)
[2020-09-18] MEDS: Piperacillin/Tazobactam 3.375 GM in Sodium Chloride 0.9% 100 ML IVPB SCH ×2 (13:30→19:44)
[2020-09-18] MEDS: Hydrocortisone Sod Succ/PF 100 mg/2 ml Vial IVP SCH ×2 (13:30→23:49)
[2020-09-18 13:35] LABS: Hemoglobin A1c 5.1 % (4.0-6.0)
[2020-09-18 13:42] LABS: Lactic Acid 2.8 mmol/L (0.5-2.2)
[2020-09-18 13:46] LABS: PTT 34.8 sec (22.9-36.1)
[2020-09-18 13:47] LABS: INR-International Normal Ratio 1.5; Prothrombin Time 18.5 sec (12.0-14.7)
[2020-09-18 14:05] LABS: CKMB 45.7 ng/mL (0-6.6); Troponin I 7.049 ng/mL (< 0.028)
[2020-09-18 14:09] LABS: Bilirubin Negative (Negative); Blood, Urine Trace (Negative); Clarity Clear (Clear); Glucose, Urine (Dipstick) Normal (Negative); Ketone, Urine Negative (Negative); Leukocyte Negative Leu/uL (Negative); Nitrite Negative (Negative); Protein, Urine (Dipstick) Negative (Neg-Trace); RBC/HPF 0-3 HPF (0-3); Specific Gravity, Urine 1.002 (1.002-1.036); Squamous Epithelial None Seen HPF (0-3); Urobilinogen Normal mg/dL (Less than 2); WBC/HPF 0-3 HPF (0-3); pH, Urine 6.5 (5.0-9.0)
[2020-09-18] MEDS: Phytonadione 10 MG in Sodium Chloride 0.9% 50 ML IVPB SCH ×2 (14:09→17:29)
[2020-09-18 14:14] LABS: Bacteria/HPF 1+ HPF (None Seen)
[2020-09-18 14:21] LABS: ALT (SGPT) 237 U/L (8-55); AST (SGOT) 131 U/L (5-34); Albumin 2.8 g/dL (3.5-5.0); Alkaline Phosphatase 62 U/L (40-110); Anion Gap 13 mmol/L (10-20); BUN (Urea Nitrogen) 12 mg/dL (8.9-20.6); Bilirubin, Direct 0.2 mg/dL (0.1-0.3); Bilirubin, Total 0.4 mg/dL (0.2-1.2); CK (CPK) 2693 U/L (30-200); Calc. Creatinine Clearance 0 mL/min (70-130); Carbon Dioxide 29 mmol/L (22-29); Chloride 107 mmol/L (98-107); Globulin 2.2 g/dL (2.4-3.5); Glucose 151 mg/dL (70-105); Lipase 4 U/L (8-78); Magnesium 2.1 mg/dL (1.6-2.6); Phosphorus 3.2 mg/dL (2.3-4.7); Potassium 3.3 mmol/L (3.5-5.1); Sodium 146 mmol/L (136-145)
[2020-09-18] MEDS: Albuterol Sulfate 2.5 mg/3 ml Neb NEB SCH ×3 (14:34→22:27)
[2020-09-18] MEDS ORDERED: POTASSIUM CHLORIDE IVPB SCH (14:45)
[2020-09-18] MEDS ORDERED: EPINEPHrine 4 MG in Dextrose 5% in Water 250 ML IV SCH (15:45)
[2020-09-18 15:56] VITALS: TEMP 99
[2020-09-18] MEDS: Vecuronium 10 MG VIAL IV PRN ×2 (16:00→22:19)
[2020-09-18] MEDS ORDERED: Sodium Bicarbonate 150 MEQ in Dextrose 5% in Water 1,000 ML IV SCH (16:15)
[2020-09-18] MEDS ORDERED: Vasopressin 20 UNIT in Sodium Chloride 0.9% 250 ML 250 ML IV SCH (16:15)
[2020-09-18] MEDS: Levothyroxine Sodium 400 MCG in Sodium Chloride 0.9% 100 ML IVPB SCH ×2 (16:23→21:01)
[2020-09-18 17:16] VITALS: BMI 25.2
[2020-09-18 18:07] LABS: INR-International Normal Ratio 1.1; PTT 34.1 sec (22.9-36.1); Prothrombin Time 14.8 sec (12.0-14.7)
[2020-09-18 18:11] LABS: Actual Bicarbonate (HCO3a) 26.4 mEq/L (22-28); CO2 Tension 36.2 mmHg (35.0-45.0); Calcium, Ionized (arterial) 1.12 mmol/L (1.12-1.30); Carboxyhemoglobin (COHb) 0.3 gm% (0.0-3.0); Hemoglobin (Hb) 11.5 g/dL (14.0-18.0); Potassium - ABG Lab 4.59 mmol/L (3.70-5.30); pH, Arterial 7.48 (7.35-7.45)
[2020-09-18 18:15] LABS: Band 53 % (5-11); Hemoglobin 10.9 g/dL (14.0-18.0); Lymphocytes 4 % (21-51); MDiff Complete? YES; Mean Corpuscular HGB CONC 34.5 g/dL (32.0-36.0); Mean Corpuscular Hemoglobin 30.7 pg (27.0-31.0); Mean Corpuscular Volume 89.1 fL (78.0-98.0); Neutrophil 43 % (42-75); Platelet Count 194 thou/uL (130-400); Platelet Morphology Comment Appears Adequate; Polychromasia SLIGHT = 2-3 cells (100X) (0-2/hpf); RBC Distribution Width 11.4 % (11.5-14.5); Red Blood Cell (RBC) Count 3.55 mill/uL (4.70-6.10); White Blood Cell (WBC) Count 15.8 thou/uL (4.8-10.8)
[2020-09-18 18:22] LABS: Puncture Site Arterial Line
[2020-09-18 18:54] LABS: Albumin 3.5 g/dL (3.5-5.0)
[2020-09-18 18:55] LABS: Chloride 108 mmol/L (98-107); Potassium 4.7 mmol/L (3.5-5.1); Sodium 144 mmol/L (136-145)
[2020-09-18 18:56] LABS: Calcium 8.5 mg/dL (7.8-10.44)
[2020-09-18 18:57] LABS: Globulin 2.2 g/dL (2.4-3.5); Glucose 144 mg/dL (70-105); Protein, Total 5.7 g/dL (6.0-8.3)
[2020-09-18 18:58] LABS: Anion Gap 15 mmol/L (10-20); Carbon Dioxide 26 mmol/L (22-29); Lactic Acid 3.1 mmol/L (0.5-2.2)
[2020-09-18 19:00] LABS: Alkaline Phosphatase 59 U/L (40-110); Calc. Creatinine Clearance 132 mL/min (70-130)
[2020-09-18 19:01] LABS: BUN (Urea Nitrogen) 10 mg/dL (8.9-20.6); CKMB 31.5 ng/mL (0-6.6); Critical Call CKMB RESULT DECREASING; Critical Call Chem Troponin I RESULT DECREASING; Troponin I 4.022 ng/mL (< 0.028)
[2020-09-18 19:02] LABS: AST (SGOT) 103 U/L (5-34); Bilirubin, Direct 0.5 mg/dL (0.1-0.3)
[2020-09-18 19:03] LABS: ALT (SGPT) 182 U/L (8-55)
--- NOTE | 2020-09-18 19:07 | RAD ---
CHEST ONE VIEW: 09/18/20 INDICATION: History of organ donor. COMPARISON: Prior exam dated 09/18/20. FINDINGS: Small biapical pneumothoraces appear similar. Diffuse consolidation of the lungs is similar appearing . Pneumomediastinum is similar appearing. Patient remains intubated with gastric catheter placement. Osseous structures are unchanged. IMPRESSION: Stable examination of the chest when compared to the prior dated 09/18/20 at 12:52 p.m. POS: BH
[2020-09-18 19:32] LABS: Bilirubin, Total 0.9 mg/dL (0.2-1.2)
[2020-09-18 19:49] LABS: Base Excess (BEa) 0.9 mEq/L (-2.0 to +3.0); CO2 Tension 43.6 mmHg (35.0-45.0); Calcium, Ionized (arterial) 1.14 mmol/L (1.12-1.30); Carboxyhemoglobin (COHb) 0.1 gm% (0.0-3.0); Hemoglobin (Hb) 11.5 g/dL (14.0-18.0); Potassium - ABG Lab 4.18 mmol/L (3.70-5.30); pH, Arterial 7.39 (7.35-7.45)
[2020-09-18 19:56] LABS: O2 Tension (PaO2), arterial 49.2 mmHg (80.0-100.0); Puncture Site Arterial Line
[2020-09-18 19:59] LABS: CK (CPK) 2175 U/L (30-200); Lipase 6 U/L (8-78); Magnesium 1.7 mg/dL (1.6-2.6); Phosphorus 1.4 mg/dL (2.3-4.7)
[2020-09-18] MEDS ORDERED: cefTRIAXone\\ROCEPHIN 2 GM in Sodium Chloride 0.9% 100 ML IVPB SCH (20:30)
[2020-09-18] MEDS ORDERED: DOBUTamine 500 mg/250 ml 500 MG in Premix Bag 1 BAG IVPB SCH (20:30)
[2020-09-18] MEDS ORDERED: Insulin Regular 100 units/100 ml in NS IVPB SCH (20:45)
[2020-09-18] MEDS ORDERED: Sodium Phosphate 30 MMOL in Sodium Chloride 0.9% 250 ML 250 ML IVPB SCH (21:00)
[2020-09-18] MEDS ORDERED: Furosemide 40 MG/4 ML VIAL ONE (21:38)
[2020-09-18] MEDS ORDERED: Naloxone HCl 0.4 mg/ml Vial ONE (21:38)
[2020-09-18] MEDS ORDERED: Furosemide 20 MG/2 ML VIAL SLOW IVP SCH (21:45)
[2020-09-18] MEDS ORDERED: Naloxone HCl 2 mg/2 ml Syringe IV SCH (21:45)
[2020-09-18] MEDS ORDERED: Norepinephrine 32 MG in Dextrose 5% in Water 218 ML IVPB PRN (21:51)
[2020-09-19 00:46] LABS: Actual Bicarbonate (HCO3a) 27.5 mEq/L (22-28); CO2 Tension 37.3 mmHg (35.0-45.0); Calcium, Ionized (arterial) 1.08 mmol/L (1.12-1.30); Carboxyhemoglobin (COHb) 0.1 gm% (0.0-3.0); Hemoglobin (Hb) 11.4 g/dL (14.0-18.0); O2 Tension (PaO2), arterial 78.4 mmHg (80.0-100.0); pH, Arterial 7.49 (7.35-7.45)
[2020-09-19 00:49] LABS: Puncture Site RBA
[2020-09-19 00:50] LABS: ALV-art Gradient 587.975 mmHg (0-20)
[2020-09-19 01:18] LABS: Mean Corpuscular HGB CONC 34.6 g/dL (32.0-36.0); Mean Corpuscular Hemoglobin 30.3 pg (27.0-31.0); Mean Corpuscular Volume 87.4 fL (78.0-98.0); Mean Platelet Volume 7.6 fL (7.4-10.4); Platelet Count 176 thou/uL (130-400); RBC Distribution Width 11.5 % (11.5-14.5); Red Blood Cell (RBC) Count 3.64 mill/uL (4.70-6.10); White Blood Cell (WBC) Count 12.7 thou/uL (4.8-10.8)
[2020-09-19] MEDS: Piperacillin/Tazobactam 3.375 GM in Sodium Chloride 0.9% 100 ML IVPB SCH (01:23)
[2020-09-19 01:26] LABS: INR-International Normal Ratio 1.5; PTT 33.5 sec (22.9-36.1); Prothrombin Time 18.2 sec (12.0-14.7)
[2020-09-19 01:30] LABS: Hemoglobin A1c 4.9 % (4.0-6.0)
[2020-09-19 01:33] LABS: Lactic Acid 2.5 mmol/L (0.5-2.2)
[2020-09-19 01:38] LABS: Band 30 % (5-11); Lymphocytes 6 % (21-51); MDiff Complete? YES; Monocytes 3 % (0-10); Neutrophil 61 % (42-75)
[2020-09-19 01:47] LABS: CKMB 18.4 ng/mL (0-6.6); Critical Call CKMB RESULT DECREASING; Critical Call Chem Troponin I RESULT DECREASING; Troponin I 2.354 ng/mL (< 0.028)
[2020-09-19 01:48] LABS: ALT (SGPT) 163 U/L (8-55); AST (SGOT) 93 U/L (5-34); Albumin 3.7 g/dL (3.5-5.0); Alkaline Phosphatase 62 U/L (40-110); Anion Gap 18 mmol/L (10-20); BUN (Urea Nitrogen) 9 mg/dL (8.9-20.6); Bilirubin, Direct 0.4 mg/dL (0.1-0.3); Bilirubin, Total 0.7 mg/dL (0.2-1.2); CK (CPK) 2013 U/L (30-200); Calc. Creatinine Clearance 131 mL/min (70-130); Calcium 8.2 mg/dL (7.8-10.44); Carbon Dioxide 29 mmol/L (22-29); Chloride 104 mmol/L (98-107); Globulin 1.8 g/dL (2.4-3.5); Glucose 111 mg/dL (70-105); Lipase Less than 4 U/L (8-78); Magnesium 1.4 mg/dL (1.6-2.6); Phosphorus 3.6 mg/dL (2.3-4.7); Potassium 3.7 mmol/L (3.5-5.1); Protein, Total 5.5 g/dL (6.0-8.3); Sodium 147 mmol/L (136-145)
[2020-09-19 02:29] LABS: Bilirubin Negative (Negative); Blood, Urine Negative (Negative); Clarity Clear (Clear); Glucose, Urine (Dipstick) Normal (Negative); Ketone, Urine Negative (Negative); Leukocyte Negative Leu/uL (Negative); Nitrite Negative (Negative); Protein, Urine (Dipstick) Negative (Neg-Trace); RBC/HPF 0-3 HPF (0-3); Specific Gravity, Urine 1.014 (1.002-1.036); Squamous Epithelial None Seen HPF (0-3); Urobilinogen Normal mg/dL (Less than 2); WBC/HPF 0-3 HPF (0-3); pH, Urine 7.5 (5.0-9.0)
[2020-09-19] MEDS: Albuterol Sulfate 2.5 mg/3 ml Neb NEB SCH ×2 (02:29→08:41)
[2020-09-19 02:31] LABS: Bacteria/HPF 1+ HPF (None Seen)
[2020-09-19] MEDS: Levothyroxine Sodium 400 MCG in Sodium Chloride 0.9% 100 ML IVPB SCH (04:04)
[2020-09-19] MEDS: Hydrocortisone Sod Succ/PF 100 mg/2 ml Vial IVP SCH (05:34)
[2020-09-19 05:45] LABS: INR-International Normal Ratio 1.5; Prothrombin Time 18.4 sec (12.0-14.7)
[2020-09-19 05:56] LABS: Hemoglobin A1c 5.2 % (4.0-6.0)
[2020-09-19 06:07] LABS: Lactic Acid 3.2 mmol/L (0.5-2.2)
[2020-09-19 06:13] LABS: ALT (SGPT) 144 U/L (8-55); AST (SGOT) 78 U/L (5-34); Albumin 3.3 g/dL (3.5-5.0); Alkaline Phosphatase 63 U/L (40-110); Anion Gap 14 mmol/L (10-20); BUN (Urea Nitrogen) 12 mg/dL (8.9-20.6); Bilirubin, Direct 0.4 mg/dL (0.1-0.3); Bilirubin, Total 0.8 mg/dL (0.2-1.2); CK (CPK) 1598 U/L (30-200); Calc. Creatinine Clearance 126 mL/min (70-130); Calcium 7.9 mg/dL (7.8-10.44); Carbon Dioxide 29 mmol/L (22-29); Chloride 104 mmol/L (98-107); Globulin 2.2 g/dL (2.4-3.5); Glucose 161 mg/dL (70-105); Lipase Less than 4 U/L (8-78); Magnesium 1.3 mg/dL (1.6-2.6); Phosphorus 3.1 mg/dL (2.3-4.7); Potassium 3.9 mmol/L (3.5-5.1); Protein, Total 5.5 g/dL (6.0-8.3); Sodium 143 mmol/L (136-145)
[2020-09-19] MEDS ORDERED: Albumin 25% 25 GM/100 ML BOT IVPB SCH ×2 (06:15)
[2020-09-19 06:18] LABS: CKMB 13.4 ng/mL (0-6.6); Critical Call CKMB RESULT DECREASING; Critical Call Chem Troponin I RESULT DECREASING; Troponin I 1.917 ng/mL (< 0.028)
[2020-09-19 06:43] LABS: Hemoglobin 10.1 g/dL (14.0-18.0); Mean Corpuscular HGB CONC 34.8 g/dL (32.0-36.0); Mean Corpuscular Hemoglobin 30.5 pg (27.0-31.0); Mean Corpuscular Volume 87.5 fL (78.0-98.0); Mean Platelet Volume 7.9 fL (7.4-10.4); Platelet Count 163 thou/uL (130-400); RBC Distribution Width 11.5 % (11.5-14.5); Red Blood Cell (RBC) Count 3.33 mill/uL (4.70-6.10); White Blood Cell (WBC) Count 14.2 thou/uL (4.8-10.8)
[2020-09-19 07:08] LABS: Band 31 % (5-11); Eosinophils 1 % (0-10); Lymphocytes 4 % (21-51); MDiff Complete? YES; Neutrophil 64 % (42-75)
[2020-09-19 07:20] VITALS: BP 85/55
[2020-09-19 07:32] LABS: Actual Bicarbonate (HCO3a) 25.6 mEq/L (22-28); Base Excess (BEa) 2.7 mEq/L (-2.0 to +3.0); CO2 Tension 32.8 mmHg (35.0-45.0); Calcium, Ionized (arterial) 1.02 mmol/L (1.12-1.30); Carboxyhemoglobin (COHb) 0.1 gm% (0.0-3.0); O2 Tension (PaO2), arterial 172.5 mmHg (80.0-100.0); Potassium - ABG Lab 4.07 mmol/L (3.70-5.30); pH, Arterial 7.51 (7.35-7.45)
[2020-09-19 07:33] LABS: Puncture Site Arterial Line
--- NOTE | 2020-09-19 08:11 | RAD ---
PORTABLE CHEST: Date: 09/19/2020 INDICATION: Organ donor. COMPARISON: 09/18/2020. FINDINGS: Bilateral chest tubes unchanged. Diffuse air space opacification throughout both lungs, stable in alexa earance. Subcutaneous emphysema. There may be a small right apical pneumothorax. Pneumomediastinum. IMPRESSION: Not significantly changed from yesterday. POS: AGW
[2020-09-19] MEDS ORDERED: cefTRIAXone\\ROCEPHIN 1 GM in Sodium Chloride 0.9% 100 ML IVPB SCH (09:00)
== END 2020-09-19 08:20 | disposition expired ==
LOC: SDC/OP 10:10 → CCU 10:11 → SDC/OP 09-19 08:20
DX: J98.2 Interstitial emphysema; Z88.0 Allergy status to penicillin; Z88.5 Allergy status to narcotic agent
CPT/HCPCS: 36415; 36416; 36600; 71045; 80053; 81001; 82150; 82248; 82550; 82553; 82805; 83036; 83605; 83690; 83735; 84100; 84484; 85025; 85384; 85610; 85730; 86850; 86900; 86901; 87086; 87205; 89220; 93005; 93010; 94002; 94003; J0696; J1250; J1720; J1815; J1940; J2310; J2543; J3430; J3480; J3490; J7050; J7070; J7611; P9047; P9059